=== PATIENT | female | born 1990 | race African-American/Black ===

== ENCOUNTER 2016-11-23 22:21 | Emergency (ER) | payer SELFPAY ==
[~2016-11-23] VITALS: Ht 160 cm; Wt 70.3 kg
[~2016-11-23 22:21] MED LIST: NKM
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
[2016-11-23] MEDS ORDERED: Haloperidol 5mg/ml Inj IM ONE (22:45)
[2016-11-23] MEDS ORDERED: LORazepam Inj 2mg/ml 1ml IV ONE (23:15)
[2016-11-23 23:37] VITALS: BP 105/58
[2016-11-24 00:55] VITALS: BP 120/62
[2016-11-24 02:24] VITALS: BP 128/77
[2016-11-24 04:04] VITALS: BP 133/89
[2016-11-24 05:10] VITALS: BP 133/89
== END 2016-11-24 05:11 | disposition home or self-care (01) ==
LOC: EDBD 22:21 → EMR 22:29
DX: F12.929 Cannabis use, unspecified with intoxication, unspecified (principal); F10.129 Alcohol abuse with intoxication, unspecified; R11.2 Nausea with vomiting, unspecified; F12.959 Cannabis use, unspecified with psychotic disorder, unspecified
CPT/HCPCS: 36415; 80300; 96361; 96372; 96374; 96375; 99284; G0480; J1630; J2405; 80329